=== PATIENT | male | born 1995 | race Caucasian/White ===

== ENCOUNTER 2021-02-15 21:55 | Emergency (ER) | payer MEDICAID ==
[~2021-02-15] VITALS: Ht 177.8 cm; Wt 77.1 kg
[2021-02-15 22:10] VITALS: BP 134/83
[2021-02-15] MEDS ORDERED: LIDOCAINE MPF 1% 5 ML ONE (22:49)
[2021-02-15] MEDS ORDERED: LIDOCAINE MPF 1% 10 MG/ML VIAL IM ONE (22:50)
--- NOTE | 2021-02-15 23:00 | NUR ---
PT AMBULATED TO BED #9
--- NOTE | 2021-02-15 23:10 | NUR ---
25 YO/M BIB SELF W C/O R UPPER EAR LOBE SWELLING, DRAINAGE, WARMTH, REDNESS, TENDERNES 2/10 RADIATING TO BACK PF EAR X3 WEEKS, PT REPORTS IT STARTED A PIMPLE AND WORSENED. PT R UPPER EAR LOBE IS RED, WARM, ABSCESS NOTED, TENDER TO TOUCH. PT DENIES FEVERS/CHILLS, N/V/D, HEARING LOSS, OR RINGING IN EARS. PT REPORTS CURRENTLY TAKING DOXYCYCLINE 100MG BID. PT LAYING IN BED W HOB ELEVATED LOCKED IN LOWEST POSITION W X1 SIDERAIL UP. BREATHING EVEN AND UNLABORED. NAD NOTED, WILL CONTINUE TO MONITOR. PMH:DENIES APOLINAR
[2021-02-15] MEDS ORDERED: CIPR250T6 PO (23:39)
[2021-02-16 00:08] VITALS: BP 134/83
--- NOTE | 2021-02-16 00:08 | NUR ---
Patient discharged with v/s stable. Written and verbal after care instructions given and explained. Patient alert, oriented and verbalized understanding of instructions. Ambulatory with steady gait. All questions addressed prior to discharge. ID band removed. Patient advised to follow up with PMD. Rx of CIPROFLOXACIN given. Patient educated on indication of medication including possible reaction and side effects. Opportunity to ask questions provided and answered.
== END 2021-02-16 00:08 | disposition home or self-care (01) ==
LOC: MED 21:55
DX: H61.011 Acute perichondritis of right external ear (principal); H60.01 Abscess of right external ear
CPT/HCPCS: 10060; 99283; J2001; 96372

== ENCOUNTER 2021-05-31 15:48 | Emergency (ER) | payer MEDICAID ==
[~2021-05-31] VITALS: Ht 177.8 cm; Wt 77.1 kg
[~2021-05-31 15:48] MED LIST: CIPR250T6 PO
[2021-05-31 15:55] VITALS: BP 137/76
--- NOTE | 2021-05-31 16:05 | NUR ---
Patient ambulated to bed 11 with steady/even gait.
--- NOTE | 2021-05-31 16:10 | NUR ---
26 Y/O MALE C/O ABDOMINAL AND CHEST PAIN X0600 THIS MORNING. +NAUSEA/VOMITING. 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 DENIES OTHER DRUGS/ETOH. PATIENT REPORTS VOMITING >10 EPISODES SINCE 0400; STATES ELECTROLYTE FLUIDS WITHOUT RELIEF TO SYMPTOMS. SPO2 100% ON ROOM AIR HR 62 ON SHOE RECONDITIONER. BED LOCKED IN LOWEST POSITION, SIDE RAILS X 1. PMH:CANNABINOID HYPEREMESIS SYNDROME NKDA
[2021-05-31] MEDS ORDERED: NACL 0.9% 1,000 ML IV ONE (16:40)
[2021-05-31] MEDS ORDERED: MORPHINE SULFATE 4 MG/ML SYR IVP ONE (16:40)
[2021-05-31] MEDS ORDERED: ONDANSETRON 4 MG/2 ML VIAL IVP ONE (16:40)
--- NOTE | 2021-05-31 17:27 | NUR ---
Patient reports positive relief to pain; 5/10, denies nausea. All pt needs met.
[2021-05-31 17:30] VITALS: BP 112/80
[2021-05-31] MEDS ORDERED: ONDA-188 PO (18:29)
--- NOTE | 2021-05-31 18:55 | NUR ---
Patient discharged with v/s stable. Written and verbal after care instructions given and explained for Canniboid Hyperemesis Syndrome. Patient alert, oriented and verbalized understanding of instructions. Ambulatory with steady gait. All questions addressed prior to discharge. ID band removed. Patient advised to follow up with PMD. Rx of Zofran ODT given. Patient educated on indication of medication including possible reaction and side effects. Opportunity to ask questions provided and answered.
== END 2021-05-31 18:55 | disposition home or self-care (01) ==
LOC: MED 15:48
DX: R11.2 Nausea with vomiting, unspecified (principal); F12.90 Cannabis use, unspecified, uncomplicated; Z71.6 Tobacco abuse counseling; Z79.899 Other long term (current) drug therapy; Z79.2 Long term (current) use of antibiotics
CPT/HCPCS: 81002; 96361; 96374; 96375; 99284; J2270; J2405; J7030

== ENCOUNTER 2021-07-23 20:19 | Emergency (ER) | payer MEDICAID ==
[~2021-07-23] VITALS: Ht 180.3 cm; Wt 76.2 kg
[~2021-07-23 20:19] MED LIST changes: +ONDA-188 PO
[2021-07-23 20:56] VITALS: BP 109/81
--- NOTE | 2021-07-23 21:07 | NUR ---
TO LOBBY FOLLOWING TRIAGE
--- NOTE | 2021-07-23 22:40 | NUR ---
seen and examined by GRICELDA.
--- NOTE | 2021-07-23 22:53 | NUR ---
patient moved to bed 12 ambulatory with a steady gait
[2021-07-23] MEDS ORDERED: LORazepam 2 MG/ML VIAL IVP ONE (22:55)
[2021-07-23] MEDS ORDERED: NACL 0.9% 1,000 ML IV ONE (22:55)
[2021-07-23] MEDS ORDERED: ONDANSETRON 4 MG/2 ML VIAL IVP ONE (23:15)
[2021-07-23 23:32] LABS: BARBITURATE, URINE NEGATIVE ng/ml (NEG <=200); BENZODIAZEPINE, URINE NEGATIVE ng/mL (NEG <=200); CANNABINOID, URINE POSITIVE ng/mL (NEG <=50); COCAINE, URINE NEGATIVE ng/mL (NEG <=300); OPIATE, URINE NEGATIVE ng/mL (NEG <=2000); PHENCYCLIDINE SCREEN,URINE NEGATIVE ng/mL (NEG <=25)
--- NOTE | 2021-07-24 | NUR ---
26 Y.O. M BIB SELF C/O VOMITING SINCE THIS AM, "IT STARTED WITH A PANIC ATTACK, I HAVE ANXIETY". PT STATES HE HAS PAIN A 5/10 IN HIS LOWER ABDOMEN. NO SOB OR CHEST PAIN. NOT ACTIVELY VOMITING BUT CAME IN WITH N/V. PTS VITALS ARE STABLE. A&OX4, SKIN INTACT, AND STEADY GAIT. HX: ANXIETY
[2021-07-24 00:35] VITALS: BP 111/82
--- NOTE | 2021-07-24 00:37 | NUR ---
Patient discharged with v/s stable. Written and verbal after care instructions given and explained. Patient verbalized understanding. Ambulatory with steady gait. All questions addressed prior to discharge. Advised to follow up with PMD.
== END 2021-07-24 | disposition home or self-care (01) ==
LOC: MED 20:19
DX: R11.2 Nausea with vomiting, unspecified (principal); F41.9 Anxiety disorder, unspecified; F12.90 Cannabis use, unspecified, uncomplicated; Z79.899 Other long term (current) drug therapy; Z79.2 Long term (current) use of antibiotics
CPT/HCPCS: 80305; 96361; 96374; 96375; 99284; J2060; J2405; J7030

== ENCOUNTER 2022-01-03 10:08 | Emergency (ER) | payer OTHER, MEDICAID ==
[~2022-01-03] VITALS: Ht 180.3 cm; Wt 77.1 kg
[2022-01-03 10:23] VITALS: BP 107/74
--- NOTE | 2022-01-03 10:33 | NUR ---
TO ER BED 12
--- NOTE | 2022-01-03 10:55 | NUR ---
26M presents to ED with panic attacks, N/V/D, ABD pain since this morning. Pt reports being woken up by a panic attack at 0300, states having 10 episodes of vomiting and diarrhea, body weakness, dizziness, and bilateral leg cramps. Pt reports cramping like, 9/10 abdominal pain, denies fevers, chills, UTI symptoms. Pt denies taking meds. Pt placed in gown, on bedside satellite project site monitor, bed at lowest position, side rails x1.
[2022-01-03] MEDS ORDERED: NACL 0.9% 1,000 ML IV ONE (11:30)
[2022-01-03] MEDS ORDERED: ONDANSETRON 4 MG/2 ML VIAL IVP ONE (11:30)
[2022-01-03] MEDS ORDERED: diazePAM 5 MG TAB PO ONE (11:30)
[2022-01-03 12:02] LABS: HEMATOCRIT 42.4 % (36-52); HEMOGLOBIN 14.7 g/dL (12.0-18.0); MEAN CORPUSCULAR HEMOGLOBIN 31 pg (27-31); MEAN CORPUSCULAR HGB CONC 35 g/dL (33-37); MEAN CORPUSCULAR VOLUME 87.8 fL (80-94); PLATELET COUNT (AUTO) 250 K/uL (140-450); RED BLOOD CELL COUNT(AUTO) 4.83 MIL/uL (4.20-6.10); RED CELL DISTRIBUTION WIDTH 13.2 % (11.6-13.7); WHITE BLOOD COUNT (AUTO) 16.7 K/uL (4.8-10.8)
[2022-01-03 12:25] LABS: BASOPHILS % (MANUAL) 0 % (0-2); EOSINOPHILS % (MANUAL) 0 % (0-4); LYMPHOCYTES % (MANUAL) 2 % (20-46); MONOCYTES % (MANUAL) 2 % (5-12)
[2022-01-03 12:26] LABS: ALBUMIN 4.5 g/dL (3.4-5.0); ASPARTATE AMINOTRANSFERASE 27 U/L (15-37); BUFFY COAT SMEAR PREP N; CARBON DIOXIDE 24.9 mmol/L (21-32); GFR ARICAN-AMERICAN 118 mL/min (>90); GLUCOSE 134 mg/dL (74-106); TOTAL BILIRUBIN 0.4 mg/dL (0.0-1.0); UREA NITROGEN, BLOOD 10 mg/dL (7-18)
[2022-01-03 12:32] LABS: ACETAMINOPHEN < 0.5 ug/ml (10-30); ANION GAP 13.1 (8-16); CHLORIDE 105 mmol/L (98-107); SALICYLATE < 2.8 mg/dL (2.8-20.0); SODIUM SERUM 139 mmol/L (136-145)
[2022-01-03] MEDS ORDERED: LORazepam 2 MG/ML VIAL IVP ONE (13:20)
[2022-01-03] MEDS ORDERED: ONDA-188 PO (13:49)
[2022-01-03] MEDS ORDERED: HYDR25CA1 PO (13:50)
[2022-01-03 14:33] LABS: BARBITURATE, URINE NEGATIVE ng/ml (NEG <=200); BENZODIAZEPINE, URINE POSITIVE ng/mL (NEG <=200); CANNABINOID, URINE POSITIVE ng/mL (NEG <=50); COCAINE, URINE NEGATIVE ng/mL (NEG <=300); OPIATE, URINE NEGATIVE ng/mL (NEG <=2000); PHENCYCLIDINE SCREEN,URINE NEGATIVE ng/mL (NEG <=25)
[2022-01-03 14:48] VITALS: BP 108/61
--- NOTE | 2022-01-03 14:49 | NUR ---
Patient discharged with v/s stable. Written and verbal after care instructions given and explained. Patient alert, oriented and verbalized understanding of instructions. Ambulatory with steady gait. All questions addressed prior to discharge. ID band removed. Patient advised to follow up with PMD. Rx of VISTARIL, ZOFRAN ODT given. Patient educated on indication of medication including possible reaction and side effects. Opportunity to ask questions provided and answered.
== END 2022-01-03 14:48 | disposition home or self-care (01) ==
LOC: MED 10:08
DX: F41.0 Panic disorder [episodic paroxysmal anxiety] (principal); R11.2 Nausea with vomiting, unspecified
CPT/HCPCS: 36415; 80053; 80305; 81002; 85025; 96361; 96374; 96375; 99284; G0480; G0482; J2060; J2405; J7030

== ENCOUNTER 2022-05-28 08:44 | Emergency (ER) | payer OTHER, MEDICAID ==
[~2022-05-28] VITALS: Ht 180.3 cm; Wt 81.6 kg
[~2022-05-28 08:44] MED LIST changes: +HYDR25CA1 PO
[2022-05-28 08:48] VITALS: BP 161/91
--- NOTE | 2022-05-28 08:55 | NUR ---
pt ambulatory to bed 03
--- NOTE | 2022-05-28 08:58 | NUR ---
pt in room 3, c/o mid abd pain 10/06, + nausea and vomiting since today am. o2 sat 98% ra, sr up times 2, await for md miles
[2022-05-28] MEDS ORDERED: NACL 0.9% 1,000 ML IV ONE (09:10)
[2022-05-28] MEDS ORDERED: ONDANSETRON 4 MG/2 ML VIAL IVP ONE (09:10)
[2022-05-28] MEDS ORDERED: KETOROLAC 15 MG/ML VIAL IVP ONE (09:10)
[2022-05-28] MEDS ORDERED: DIAZEPAM PFS 10 MG/2 ML SYR IVP ONE (09:10)
[2022-05-28 09:23] LABS: BASOPHILS % (AUTO) 0.2 % (0.0-2.0); HEMATOCRIT 42.9 % (36-52)
[2022-05-28 09:36] LABS: ALBUMIN 4.6 g/dL (3.4-5.0); ANION GAP 13.1 (8-16); CARBON DIOXIDE 26.6 mmol/L (21-32); POTASSIUM 3.7 mmol/L (3.5-5.1); TOTAL BILIRUBIN 0.3 mg/dL (0.0-1.0)
[2022-05-28 09:39] LABS: HEMOGLOBIN 14.6 g/dL (12.0-18.0); LYMPHOCYTES % (AUTO) 4.7 % (20.5-51.1); MEAN CORPUSCULAR HEMOGLOBIN 30 pg (27-31); MEAN CORPUSCULAR HGB CONC 34 g/dL (33-37); MEAN CORPUSCULAR VOLUME 87.2 fL (80-94); MONOCYTES # (AUTO) 0.6 K/uL (0.8-1.0); MONOCYTES % (AUTO) 3.1 % (1.7-9.3); NEUTROPHILS # (AUTO) 18.9 K/uL (1.8-7.7); PLATELET COUNT (AUTO) 242 K/uL (140-450); RED BLOOD CELL COUNT(AUTO) 4.92 MIL/uL (4.20-6.10); RED CELL DISTRIBUTION WIDTH 12.8 % (11.6-13.7); WHITE BLOOD COUNT (AUTO) 20.6 K/uL (4.8-10.8)
--- NOTE | 2022-05-28 10:05 | NUR ---
Brisa clark in EDM - 05/28/22 at 1109 by [id number] Patient discharged with v/s stable. Written and verbal after care instructions given and explained. Patient verbalized understanding. Ambulatory with steady gait. All questions addressed prior to discharge. Advised to follow up with PMD. no abd pain, no n/v
[2022-05-28] MEDS ORDERED: HALOPERIDOL IM 5 MG/ML VIAL IVP ONE (10:25)
--- NOTE | 2022-05-28 10:30 | NUR ---
pt sleeping, no ac distress, sb on cm, o2 sat 98% ra, sr up times 2. no abd pain, no n/v
[2022-05-28] MEDS ORDERED: CAPS42.514 TP (10:59)
[2022-05-28 11:10] VITALS: BP 142/71
--- NOTE | 2022-05-28 11:10 | NUR ---
Patient discharged with v/s stable. Written and verbal after care instructions given and explained. Patient verbalized understanding. Ambulatory with steady gait. All questions addressed prior to discharge. Advised to follow up with PMD. no n/v, no abd pain
== END 2022-05-28 11:10 | disposition home or self-care (01) ==
LOC: MED 08:44
DX: R11.10 Vomiting, unspecified (principal); F12.90 Cannabis use, unspecified, uncomplicated; Z71.6 Tobacco abuse counseling; Z79.899 Other long term (current) drug therapy; Z79.2 Long term (current) use of antibiotics
CPT/HCPCS: 36415; 80053; 83690; 85025; 96361; 96374; 96375; 99284; J1630; J1885; J2405; J3360; J7030

== ENCOUNTER 2022-08-31 05:50 | Emergency (ER) | payer OTHER, MEDICAID ==
[~2022-08-31] VITALS: Ht 182.9 cm; Wt 77.1 kg
[~2022-08-31 05:50] MED LIST changes: +CAPS42.514 TP
[2022-08-31 05:56] VITALS: BP 154/86; PULSE 67; RESP 18; TEMP 98.1; O2SAT 97
--- NOTE | 2022-08-31 05:56 | NUR ---
to bed ambulatory
[2022-08-31] MEDS ORDERED: diphenhydrAMINE 50 MG/ML VIAL IVP ONE (06:45)
[2022-08-31] MEDS ORDERED: HALOPERIDOL IM 5 MG/ML VIAL IM ONE (06:45)
[2022-08-31] MEDS ORDERED: NACL 0.9% 1,000 ML IV SCH (06:45)
[2022-08-31 07:07] LABS: BASOPHILS % (AUTO) 0.2 % (0.0-2.0); HEMOGLOBIN 13.9 g/dL (12.0-18.0); LYMPHOCYTES # (AUTO) 0.6 K/uL (2.0-11.5); LYMPHOCYTES % (AUTO) 3.9 % (20.5-51.1); MEAN CORPUSCULAR HEMOGLOBIN 30 pg (27-31); MEAN CORPUSCULAR HGB CONC 34 g/dL (33-37); MEAN CORPUSCULAR VOLUME 87.4 fL (80-94); MONOCYTES # (AUTO) 0.4 K/uL (0.8-1.0); MONOCYTES % (AUTO) 2.8 % (1.7-9.3); NEUTROPHILS # (AUTO) 14.2 K/uL (1.8-7.7); NEUTROPHILS % (AUTO) 93.1 % (42.2-75.2); PLATELET COUNT (AUTO) 251 K/uL (140-450); RED BLOOD CELL COUNT(AUTO) 4.69 MIL/uL (4.20-6.10); RED CELL DISTRIBUTION WIDTH 13.4 % (11.6-13.7); WHITE BLOOD COUNT (AUTO) 15.2 K/uL (4.8-10.8)
--- NOTE | 2022-08-31 07:29 | NUR ---
REVIECED PT FROM [facility].PT HAS ABD PAIN. PT STATES HE INJESTED THC LAST NIGHT. AND HAS NAUSEA,VOMITTING AND PANIC ATTACKS. PT STATES HE HAS NO SIGNS OF DIARREHA. SKIN IS PINK/WARM/DRY; AAOX4 WITH EVEN AND STEADY GAIT; LUNGS CLEAR BL; HR EVEN AND REGULAR; PT DENIES ANY FEVER, CP, SOB, OR COUGH AT THIS TIME; PATIENT STATES PAIN OF 8/10 AT THIS TIME; VSS; PATIENT POSITIONED FOR COMFORT; HOB ELEVATED; BEDRAILS UP X2; BED DOWN. ER MD MADE AWARE OF PT STATUS.
[2022-08-31] MEDS ORDERED: ONDANSETRON 4 MG/2 ML VIAL IVP ONE (07:30)
[2022-08-31] MEDS ORDERED: KETOROLAC 15 MG/ML VIAL IVP ONE (07:30)
[2022-08-31] MEDS ORDERED: DIAZEPAM PFS 10 MG/2 ML SYR IVP ONE (07:30)
[2022-08-31 07:35] VITALS: O2SAT 98
[2022-08-31 07:40] LABS: ALBUMIN 4.6 g/dL (3.4-5.0); ANION GAP 17.1 (8-16); CARBON DIOXIDE 24.8 mmol/L (21-32); CREATININE 1.1 mg/dL (0.6-1.3); POTASSIUM 3.9 mmol/L (3.5-5.1); TOTAL BILIRUBIN 0.3 mg/dL (0.0-1.0)
[2022-08-31 08:47] LABS: APPEARANCE,URINE CLEAR (CLEAR); BILIRUBIN,URINE NEGATIVE (NEGATIVE); BLOOD, URINE TRACE-I (NEGATIVE); COLOR,URINE YELLOW (YELLOW); LEUKOCYTE ESTERASE ,URINE NEGATIVE (NEGATIVE); NITRITE, URINE NEGATIVE (NEGATIVE); UGLUCOSE 1+ (NEGATIVE)
[2022-08-31 09:03] VITALS: BP 146/71; PULSE 78; RESP 20; TEMP 97.4; O2SAT 99
--- NOTE | 2022-08-31 09:56 | NUR ---
The patient's care was reviewed and supervised by ED Agency Nurse 9, RN, RN.
== END 2022-08-31 09:09 | disposition home or self-care (01) ==
LOC: MED 05:50
DX: R11.2 Nausea with vomiting, unspecified (principal); R10.13 Epigastric pain; F12.90 Cannabis use, unspecified, uncomplicated; Z79.899 Other long term (current) drug therapy
CPT/HCPCS: 36415; 80053; 81003; 83690; 85025; 96361; 96372; 96374; 96375; 99284; J1200; J1630; J1885; J2405; J3360; J7030